=== PATIENT | male | born 1955 | race Two or more races ===

== ENCOUNTER 2023-04-26 20:35 | Emergency (ER) | payer SELFPAY ==
[~2023-04-26] VITALS: Ht 152.4 cm; Wt 87.8 kg
[2023-04-26 21:08] LABS: Basophils # (auto) 0.1 10 ^3/uL (0-0.2); Basophils % (auto) 1.5 % (0.0-2.0); Eosinophils # (auto) 0.2 10 ^3/uL (0-0.8); Eosinophils % (auto) 2.3 % (0.0-7.0); Hematocrit 43.8 % (41.0-53.0); Hemoglobin 15.3 g/dL (13.5-17.5); Lymphocytes # (auto) 2.6 10 ^3/uL (0.4-5.4); Lymphocytes % (auto) 26.9 % (10.0-50.0); Mean Corpuscular Hemoglobin 30.7 pg (28.0-32.0); Mean Corpuscular Hgb Conc. 35.1 g/dL (32.0-36.0); Mean Corpuscular Volume 87.5 fL (80.0-100.0); Monocytes # (auto) 0.6 10 ^3/uL (0-1.3); Monocytes % (auto) 6.2 % (0.0-12.0); Neutrophils % (auto) 63.1 % (37.0-80.0); Red Cell Distribution Width 12.4 % (11.8-14.3); White Blood Cell 9.6 10^3/uL (4.4-10.8)
[2023-04-26 21:27] LABS: Albumin 3.9 g/dL (3.4-5.0); Calcium 8.9 mg/dL (8.5-10.1); Potassium 3.7 mmol/L (3.5-5.1)
[2023-04-26 21:37] LABS: Bilirubin, Total 0.4 mg/dL (0.2-1.0); Total Protein 7.8 g/dL (6.4-8.2)
[2023-04-27 01:25] VITALS: BP 125/78; PULSE 72; RESP 18; TEMP 97.7; O2SAT 97
[2023-04-27 01:25] LABS: Urine Bacteria NONE SEEN /hpf (None Seen); Urine Blood Negative /uL (Negative); Urine Clarity Clear (Clear); Urine Color Yellow (Yellow); Urine Protein, UAD Negative (Negative); Urine Specific Gravity 1.034 (1.001-1.035); Urine Urobilinogen Normal (Negative); Urine WBC <1 /hpf (0 - 3)
[2023-04-27] MEDS ORDERED: MECL1TAB42 PO (01:26)
[2023-04-27] MEDS ORDERED: ZOFR4T PO (01:26)
[2023-04-27] MEDS ORDERED: ONDANSETRON ODT 4 MG TAB PO ONE (01:30)
[2023-04-27] MEDS ORDERED: MECLIZINE HCL 25 MG TAB PO ONE (01:30)
== END 2023-04-27 01:40 | disposition home or self-care (01) ==
LOC: ER 20:37
DX: R42 Dizziness and giddiness (principal)
CPT/HCPCS: 36415; 71046; 80053; 81001; 83690; 84484; 85025; 93005; 99285; J8597; Q0162

== ENCOUNTER 2023-06-29 14:11 | Emergency (ER) | payer MEDICARE ==
[~2023-06-29] VITALS: Ht 170.2 cm; Wt 84.5 kg
[~2023-06-29 14:11] MED LIST: MECL1TAB42 PO; ZOFR4T PO
[2023-06-29 15:15] LABS: Basophils # (auto) 0.1 10 ^3/uL (0-0.2); Eosinophils # (auto) 0.2 10 ^3/uL (0-0.8); Eosinophils % (auto) 2.1 % (0.0-7.0); Hematocrit 45.1 % (41.0-53.0); Hemoglobin 15.7 g/dL (13.5-17.5); Lymphocytes # (auto) 2.3 10 ^3/uL (0.4-5.4); Lymphocytes % (auto) 23.4 % (10.0-50.0); Mean Corpuscular Hemoglobin 30.9 pg (28.0-32.0); Mean Corpuscular Hgb Conc. 34.8 g/dL (32.0-36.0); Mean Corpuscular Volume 88.7 fL (80.0-100.0); Monocytes # (auto) 0.6 10 ^3/uL (0-1.3); Monocytes % (auto) 5.8 % (0.0-12.0); Neutrophils # (auto) 6.7 10 ^3/uL (1.6-8.6); Neutrophils % (auto) 67.7 % (37.0-80.0); Nucleated Red Blood Cells % 0.2 %; Red Blood Cells 5.08 10^6/uL (4.5-5.90); Red Cell Distribution Width 12.5 % (11.8-14.3); White Blood Cell 9.9 10^3/uL (4.4-10.8)
[2023-06-29 15:26] LABS: Urine Bacteria NONE SEEN /hpf (None Seen); Urine Blood Negative /uL (Negative); Urine Clarity Clear (Clear); Urine Color Colorless (Yellow); Urine Protein, UAD Negative (Negative); Urine Specific Gravity 1.016 (1.001-1.035); Urine Urobilinogen Normal (Negative); Urine WBC <1 /hpf (0 - 3)
[2023-06-29 15:33] LABS: Alanine Aminotransferase 16 U/L (7-40); Albumin 4.6 g/dL (3.2-4.8); Alkaline Phosphatase 89 U/L (46-116); Anion Gap 7 (5-15); BUN/Creatinine Ratio 12.4 (10.0-20.0); Bilirubin, Total 0.5 mg/dL (0.2-1.0); Blood Urea Nitrogen 11 mg/dL (9-23); Calcium 9.8 mg/dL (8.5-10.1); Carbon Dioxide 25 mmol/L (20-30); Chloride 100 mmol/L (98-107); Glucose 303 mg/dL (74-106); Potassium 3.9 mmol/L (3.5-5.1); Sodium 132 mmol/L (136-145); Total Protein 7.7 g/dL (5.7-8.2)
[2023-06-29 15:34] LABS: Aspartate Aminotransferase 9 U/L (13-40)
[2023-06-29] MEDS ORDERED: IOHEXOL 350 MG/ML 100ML IJ ONE (16:19)
[2023-06-29 17:20] VITALS: BP 145/79; PULSE 76; RESP 18; TEMP 97.3; O2SAT 97
== END 2023-06-29 19:45 | disposition home or self-care (01) ==
LOC: ER 14:11
DX: R42 Dizziness and giddiness (principal); M54.12 Radiculopathy, cervical region; M25.511 Pain in right shoulder
CPT/HCPCS: 36415; 70496; 80053; 81001; 82962; 85025; 99285; Q9967

== ENCOUNTER 2025-05-02 07:30 | Emergency (ER) | payer OTHER ==
[~2025-05-02] VITALS: Ht 170.2 cm; Wt 82.7 kg
--- NOTE | 2025-05-02 08:10 | ED.PDOC ---
Back pain HPI HPI Comments This is a 69 year old male presenting to the ED with chief complaint of abdominal pain s/p fall. Patient reports that his phone went off this morning and when attempting to reach it, he accidentally fell off of the bed with the upper half of his body, causing him to twist himself. Patient relays that this caused pain to his RLQ abdomen and his pain worsens with movement and twisting. Patient denies any N/V/D, back pain, head injury, or any further concerns. Chief Complaint: Abdominal Pain Time Seen by MD: 08:08 Primary Care Provider: unknown Reviewed Notes: Nurses Notes, Medications, Allergies Allergies: Coded Allergies: NO KNOWN ALLERGIES (Unverified , 04/27/23) Home Meds Active Scripts Ondansetron Odt 4MG Tab (ZOFRAN PO) 4 Mg Tb, 4 MG PO Q6HP PRN, #15 TAB ODT TAB-DISSOLVE IN MOUTH, THEN SWALLOW Prov:TARYN DENNIS PAC 04/27/23 Meclizine HCl (Meclizine 25) 25 Mg Tab, 25 MG PO Q8HP PRN, #10 TAB Prov:TARYN DENNIS PAC 04/27/23 Information Source: Patient Mode of Arrival: Ambulatory Timing: Hours Duration: Since onset Severity: Mild Prehospital treatment: None Quality: Aching Onset: Twisting, Fall Circumstance: Other History of: None Modifying Factors: Movement, Twisting Past Medical History PAST MEDICAL HISTORY: Denies Surgical History: Denies all surgeries Family History Family History: Family hx of DM, Family hx of HTN Social History Smoker: Non-Smoker Alcohol: Occasionally Drugs: Denies Drug Use Lives In: Home Constitutional: denies: chills, diaphoresis, fatigue, fever, malaise, sweats, weakness, others EENTM: denies: blurred vision, double vision, ear bleeding, ear discharge, ear drainage, ear pain, ear ringing, eye pain, eye redness, hearing loss, mouth pain, mouth swelling, nasal discharge, nose bleeding, nose congestion, nose pain, photophobia, tearing, throat pain, throat swelling, voice changes, others Respiratory: denies: cough, hemoptysis, orthopnea, SOB at rest, shortness of breath, SOB with excertion, stridor, wheezing, others Cardiovascular: denies: chest pain, dizzy spells, diaphoresis, Dyspnea on exe rtion, edema, irregular heart beat, left arm pain, lightheadedness, palpitations, PND, syncope, others Gastrointestinal: reports: abdominal pain; denies: abdomen distended, blood streaked bowels, constipated, diarrhea, dysphagia, difficulty swallowing, hematemesis, melena, nausea, poor appetite, poor fluid intake, rectal bleeding, rectal pain, vomiting, others Genitourinary: denies: burning, dysuria, flank pain, frequency, hematuria, incontinence, penile discharge, penile sore, pain, testicle pain, testicle swelling, urgency, others Neurological: denies: dizziness, fainting, headache, left sided numbness, left sided weakness, numbness, paresthesia, pre-existing deficit, right sided numbness, right sided weakness, seizure, speech problems, tingling, tremors, weakness, others Musculoskeletal: denies: back pain, gout, joint pain, joint swelling, muscle pain, muscle stiffness, neck pain, others Integumetry: denies: bruises, change in color, change in hair/nails, dryness, laceration, lesions, lumps, rash, wounds, others Allergic/Immunocompromised: denies: Difficulty Healing, Frequent Infections, Hives, Itching, others Hematologic/Lymphatic: denies: anemia, blood clots, easy bleeding, easy bruising, swollen glands, others Endocrine: denies: excessive hunger, excessive sweating, excessive thirst, excessive urination, flushing, intolerance to cold, intolerance to heat, unexplained weight gain, unexplained weight loss, others Psychiatric: denies: anxiety, bipolar disorder, depression, hopeless, panic disorder, schizophrenia, sleepless, suicidal, others All Other Systems: Reviewed and Negative Physical Exam General Appearance: No Apparent Distress, Normal HEENT: Normal ENT Inspection, Pharynx Normal, TMs Normal Neck: Full Range of Motion, Non-Tender, Normal, Normal Inspection Respiratory: Chest Non-Tender, Lungs Clear, No Accessory Muscle Use, No Respiratory Distress, Normal Breath Sounds Cardiovascular: No Edema, No JVD, No Murmur, No Gallop, Normal Peripheral Pulses, Regular Rate/Rhythm Breast Exam: Deferred Gastrointestinal: No Organomegaly, Non Tender, No Pulsatile Mass, Normal Bowel Sounds, Soft Genitalia: Deferred Pelvic: Deferred Rectal: Deferred Extremities: Normal capillary refill, Normal inspection, Normal range of motion, Non-tender, No pedal edema Musculoskeletal : Apperance: Normal Neurologic: Alert, lunch counter manager II-XII nml as Tested, No Motor Deficits, Normal Affect, Normal Mood, No Sensory Deficits Cerebellar Function: Normal Reflexes: Normal Skin: Dry, Normal Color, Warm Lymphatic: No Adenopathy Was a procedure done? Was a procedure done?: No Back Pain Differential Dx Differential Diagnosis: Bowel Obstruction, Cholelithiasis, Fracture, Musculoskeletal Pain, Pyelonephritis, Urinary Obstruction, Urinary Tract I nfection X-Ray, Labs, Meds, VS Vital Signs Date Time Temp Pulse Resp B/P (MAP) Pulse Ox O2 Delivery O2 Flow Rate FiO2 05/02/25 10:41 97.5 96 16 115/72 (86) 96 97.5 05/02/25 08:17 93 19 96 Room Air* 0 21 05/02/25 08:11 97.6 93 16 136/83 (100) 96 97.6 05/02/25 07:32 97.9 95 16 124/77 95 97.9 Current Medications Medications (Trade) Dose Ordered Sig/Amanda Route Start Time Stop Time Status Last Admin Cyclobenzaprine HCl (Flexeril Tablet) 10 mg ONCE ONCE PO 05/02/25 08:15 05/02/25 08:16 DC 05/02/25 08:12 X-Ray, Labs, Meds, VS Comment This 71-year-old male presents secondary to right lateral abdominal wall pain after twisting while attempting to grab his cell phone. He was given Flexeril ED. Upon reassessment at approximately 10:45 a.m., he states the pain is completely resolved. As he has no other complaints his pain is completely resolved, the patient will be discharged home with a prescription for Flexeril. He is asked to very well hydrated and consider gentle stretching. He says his PCP in next one two days or return to the ER for any new/worse/worsening symptoms. Time of 1ST Reevaluation: 09:07 Reevaluation 1ST: Improved Patient Education/Counseling: Diagnosis, Treatment Family Education/Counseling: No Family Present SEPSIS Sepsis Screen Date sepsis recognized/suspect: May 02, 2025 Time Sepsis recognized/suspect: 0735 Recent Procedure: No On Antibiotic Therapy: No Respiratory Rate >20: No Heart Rate >90: Yes Temp<36 C (96.8 F) or >38.3 C: No SBP <90 or MAP <65 mmHG: No New Acute Mental Status Change: No Is the patient on CPAP, BIPAP,: No Vital Signs Date Time Temp Pulse Resp B/P (MAP) Pulse Ox O2 Delivery O2 Flow Rate FiO2 05/02/25 10:41 97.5 96 16 115/72 (86) 96 97.5 05/02/25 08:17 93 19 96 Room Air* 0 21 05/02/25 08:11 97.6 93 16 136/83 (100) 96 97.6 05/02/25 07:32 97.9 95 16 124/77 95 97.9 Medications Medications Dose Ordered Sig/Amanda Route Start Time Stop Time Status Last Admin Dose Admin Cyclobenzaprine HCl 10 mg ONCE ONCE PO 05/02/25 08:15 05/02/25 08:16 DC 05/02/25 08:12 Departure 1 Departure Time of Disposition: 11:02 Impression: Primary Impression: Muscle spasm Additional Impression: Abdominal pain Disposition: 01 HOME / SELF CARE / HOMELESS Condition: Good Discharged With: Self Critical Care Note Critical Care Time?: No Stability Stability form required: No Heart Score Heart Score: Heart Score Response (Comments) Value History N/A 0 EKG N/A 0 Age N/A 0 Risk Factors N/A 0 Troponin N/A 0 Total 0 I personally scribed for CANDY VALDIVIA MD ([email or web address]) on 05/02/25 at 08:09. Winter ctronically submitted by Zane Flores ([email or web address]). CANDY VALDIVIA MD May 02, 2025 08:09
[2025-05-02] MEDS: CYCLOBENZAPRINE HCL 10 MG TAB PO ONE (08:12)
[2025-05-02 08:17] VITALS: PULSE 93; RESP 19; O2SAT 96
[2025-05-02] MEDS ORDERED: CYCL-837 PO (11:03)
[2025-05-02 11:24] VITALS: BP 114/74; PULSE 96; RESP 19; TEMP 98.4; O2SAT 99
== END 2025-05-02 11:26 | disposition home or self-care (01) ==
LOC: ER 07:30
DX: M62.838 Other muscle spasm (principal); R10.31 Right lower quadrant pain